=== PATIENT | female | born 1960 | race Caucasian/White ===

== ENCOUNTER 2023-03-09 10:47 | Emergency (ER) | payer MEDICARE, MEDICAID, SELFPAY ==
[2023-03-09 11:02] VITALS: BP 144/80; PULSE 94; RESP 16; TEMP 36.9; O2SAT 99
[2023-03-09 11:13] VITALS: BP 144/80; PULSE 94; RESP 16; TEMP 36.9; O2SAT 99
--- NOTE | 2023-03-09 11:34 | ED.GENADULT ---
HPI - General Adult General Chief complaint: Eye Problems Stated complaint: Eyes Irritation Source: patient Mode of arrival: ambulatory Limitations: no limitations History of Present Illness HPI narrative: Patient presents for evaluation of bilateral eye irritation. Symptom onset 3 days ago. Symptoms include redness, itching, thick mucopurulent discharge and matting. Denies visual disturbance. She has been rubbing her eyes and now has the sensation of a foreign body in right eye. She wears glasses but does not wear contacts. She also reports a pruritic rash to the left axillary region for the past week. No new lotions, soaps, detergents, topical products. Related Data Home Medications Medication Instructions Recorded Confirmed Radiation Tx Thyroid Ca 03/09/23 atorvastatin 40 mg tablet mg 03/09/23 bupropion HCl 100 mg tablet,12 hr mg PO 03/09/23 sustained-release celecoxib 200 mg capsule mg 03/09/23 clonazepam 0.5 mg tablet mg 03/09/23 cyclobenzaprine 5 mg tablet mg 03/09/23 famotidine 20 mg tablet mg 03/09/23 fluticasone propionate 50 intranasal 03/09/23 mcg/actuation nasal spray,suspension gabapentin 300 mg capsule mg 03/09/23 levothyroxine 112 mcg tablet mcg 03/09/23 oxybutynin chloride 5 mg mg PO 03/09/23 tablet,extended release 24 hr pantoprazole 40 mg tablet,delayed mg PO 03/09/23 release Allergies Allergy/AdvReac Type Severity Reaction Status Date / Time No Known Allergies Allergy Verified 03/09/23 10:49 Review of Systems Review of Systems: CONSTITUTIONAL: Denies fever, chills, or sweats. EYES: Reports bilateral eye irritation with redness, thick mucopurulent discharge and matting. Denies visual disturbance. ENT: Denies rhinorrhea, congestion, sore throat, or otalgia. CARDIOVASCULAR: Denies chest pain, palpitations, or edema. RESPIRATORY: Denies cough or dyspnea. GASTROINTESTINAL: Denies abdominal pain, nausea, vomiting, or diarrhea. GENITOURINARY: Denies dysuria or hematuria. SKIN: Reports pruritic rash to left axillary region. MUSCULOSKELETAL: Denies back pain, joint pain, or myalgia. NEUROLOGIC: Denies headache, numbness, dizziness, or weakness. PSYCHIATRIC: Denies anxiety or depression. [facility] Past Medical History Medical History Anxiety Arthritis Depression Hyperlipidemia Hypertension Thyroid cancer Surgical History Surgical History No pertinent past surgical history Family History Family History Mother Family history non-contributory Social History Social History Smoking packs per day: 0.25 Smoking cigarettes per day: 5.0 Smoking status: Current every day smoker Substance use: never Living arrangements: with family Gender identity (if verbalized by the patient): Female Sexual Orientation (if Verbalized by the Patient): Straight or Heterosexual Spiritual care concerns: No Exam Narrative: GENERAL: Well-appearing, well-nourished, and in no acute distress. HEAD: Normocephalic, atraumatic. EYES: PERRLA and EOMI. There is bilateral conjunctival injection with thick yellow discharge noted on eyelashes. There is an area of dye uptake noted at 5 o'clock position of right eye when evaluated with fluorescein stain and Wood's lamp evaluation. ENT: Nares clear, no rhinorrhea or epistaxis. Mucous membranes moist. Oropharynx without tonsillar hypertrophy exudate or other lesions. Bilateral TMs pearly morse nonbulging NECK: Supple. No adenopathy or masses. No carotid bruits or JVD CHEST: Clear to auscultation. No respiratory distress. No wheezes rales or rhonchi HEART: Regular rate and rhythm. No murmur heard. Normal peripheral pulses. ABDOMEN: Soft, nontender, nondistended, normal active bowel sound
== END 2023-03-09 11:38 | disposition home or self-care (01) ==
PROVIDERS: Emergency Provider Nurse Practitioner
DX: H10.33 Unspecified acute conjunctivitis, bilateral (principal); S00.201A Unspecified superficial injury of right eyelid and periocular area, initial encounter; X58.XXXA Exposure to other specified factors, initial encounter; B35.4 Tinea corporis; F17.210 Nicotine dependence, cigarettes, uncomplicated; M19.90 Unspecified osteoarthritis, unspecified site; E78.5 Hyperlipidemia, unspecified; I10 Essential (primary) hypertension; Z85.850 Personal history of malignant neoplasm of thyroid
CPT/HCPCS: 99213; A9270; G0463